=== PATIENT | male | born 1985 | race African-American/Black ===

== ENCOUNTER 2017-11-11 03:11 | Inpatient (IN) | payer MEDICAID ==
[~2017-11-11] VITALS: Ht 167.6 cm; Wt 56.2 kg
[2017-11-11] MEDS ORDERED: HALOPERIDOL 5 MG TABLET PO ONE (03:45)
[2017-11-11] MEDS ORDERED: LORazepam 2 MG TABLET PO ONE (03:45)
[2017-11-11 04:15] LABS: BASOPHILS % (AUTO) 0.6 % (0.0-2.0); EOSINOPHILS % (AUTO) 0.3 % (1.0-6.0); HEMATOCRIT 38.5 % (41-53); HEMOGLOBIN 13.3 g/dL (13.5-17.5); LYMPHOCYTES # (AUTO) 1.4 K/uL (1.0-4.8); LYMPHOCYTES % (AUTO) 21.9 % (22.0-44.0); MEAN CORPUSCULAR HGB CONC 34.5 G/dL (31.0-37.0); MEAN CORPUSCULAR VOLUME 90 fL (80-100); MONOCYTES # (AUTO) 0.5 K/uL (0.1-1.0); MONOCYTES % (AUTO) 7.6 % (2.0-9.0); NEUTROPHILS # (AUTO) 4.5 K/uL (1.8-7.7); NEUTROPHILS % (AUTO) 69.6 % (40.0-70.0); PLATELET COUNT (AUTO) 280 K/uL (150-450); RED BLOOD CELL COUNT(AUTO) 4.29 MIL/uL (4.50-5.90); RED CELL DISTRIBUTION WIDTH 15.2 % (11.5-14.5)
[2017-11-11 04:29] LABS: ANION GAP 9 mmol/L (8-16); CARBON DIOXIDE 28 mmol/L (22-29); CHLORIDE 101 mmol/L (98-107); CREATININE 0.92 mg/dL (0.60-1.30); GLOMERULAR FILTR. RATE CALC > 60 mL/min (>60); GLUCOSE,RANDOM 128 mg/dL (70-110); POTASSIUM 3.1 mmol/L (3.5-5.1); SODIUM SERUM 138 mmol/L (136-145); UREA NITROGEN, BLOOD 9 mg/dL (7-18)
[2017-11-11 04:35] LABS: ALANINE AMINOTRANSFERASE 34 U/L (12-78); ALBUMIN 3.8 g/dL (3.4-5.0); ALKALINE PHOSPHATASE 67 U/L (46-116); ASPARTATE AMINOTRANSFERASE 25 U/L (15-37); BILIRUBIN,TOTAL 0.3 mg/dL (0.1-1.0); TOTAL PROTEIN, SERUM 7.5 g/dL (6.4-8.2)
[2017-11-11 11:58] VITALS: BP 105/51
[2017-11-11] MEDS ORDERED: INFLUENZA VIRUS VACCINE QVS 2017-18 (3YR+)/PF 60 MCG/0.5 ML SYRINGE IM ONE (12:30)
[2017-11-11] MEDS ORDERED: PNEUMOCOCCAL VACCINE POLYVALENT 0.5 ML VIAL [PPSV23] IM ONE (12:30)
[2017-11-11] MEDS ORDERED: POTASSIUM CHLORIDE 20 MEQ ER TABLET PO ONE (15:15)
[2017-11-11 16:10] VITALS: BP 110/74
[2017-11-11] MEDS: LORazepam 2 MG TABLET PO PRN (17:06)
[2017-11-11] MEDS: HALOPERIDOL 5 MG TABLET PO PRN (19:28)
[2017-11-11] MEDS: OLANZapine 7.5 MG TABLET PO SCH (20:47)
[2017-11-11] MEDS: ZOLPIDEM TARTRATE 10 MG TABLET PO PRN (21:55)
[2017-11-12] MEDS ORDERED: ACETAMINOPHEN 325 MG TABLET PO PRN (07:00)
[2017-11-12] MEDS ORDERED: POTASSIUM CHLORIDE 20 MEQ ER TABLET PO ONE (07:00)
[2017-11-12] MEDS ORDERED: DOCUSATE SODIUM 100 MG CAPSULE PO PRN (07:00)
[2017-11-12] MEDS: FERROUS SULFATE 325 MG EC TABLET PO SCH ×3 (07:14→16:49)
[2017-11-12] MEDS: DIVALPROEX SODIUM 500 MG DR TABLET PO SCH ×2 (08:42→16:49)
[2017-11-12 10:18] VITALS: BP 117/70
[2017-11-12] MEDS ORDERED: ALBUTEROL SULFATE HFA 90 MCG/PUFF 8 GM INHALER IH PRN (14:30)
[2017-11-12 16:11] VITALS: BP 110/67
[2017-11-12] MEDS: IBUPROFEN 400 MG TABLET PO PRN (17:02)
[2017-11-12] MEDS: OLANZapine 7.5 MG TABLET PO SCH (20:23)
[2017-11-13 06:00] VITALS: BP 104/62
[2017-11-13] MEDS: FERROUS SULFATE 325 MG EC TABLET PO SCH ×3 (06:41→16:02)
[2017-11-13 09:06] VITALS: BP 103/57
[2017-11-13] MEDS: DIVALPROEX SODIUM 500 MG DR TABLET PO SCH ×2 (09:39→16:02)
[2017-11-13 16:00] VITALS: BP 108/68
[2017-11-13] MEDS: LORazepam 2 MG TABLET PO PRN (16:04)
[2017-11-13] MEDS: HALOPERIDOL 5 MG TABLET PO PRN (17:32)
[2017-11-13] MEDS: OLANZapine 7.5 MG TABLET PO SCH (21:12)
[2017-11-14 05:50] VITALS: BP 110/70
[2017-11-14] MEDS: FERROUS SULFATE 325 MG EC TABLET PO SCH ×3 (06:49→16:36)
[2017-11-14] MEDS: IBUPROFEN 400 MG TABLET PO PRN (06:53)
[2017-11-14] MEDS: DIVALPROEX SODIUM 500 MG DR TABLET PO SCH ×2 (08:37→16:36)
[2017-11-14 08:45] VITALS: BP 110/63
[2017-11-14 16:26] VITALS: BP 120/96
[2017-11-14] MEDS: HALOPERIDOL 5 MG TABLET PO PRN (16:36)
[2017-11-14] MEDS ORDERED: DIVA500T35 PO (17:31)
[2017-11-14] MEDS ORDERED: OLAN7.5T2 PO (17:31)
[2017-11-14] MEDS: LORazepam 2 MG TABLET PO PRN (17:41)
[2017-11-14] MEDS: OLANZapine 7.5 MG TABLET PO SCH (20:30)
[2017-11-14] MEDS: ZOLPIDEM TARTRATE 10 MG TABLET PO PRN (20:31)
[2017-11-15 05:56] VITALS: BP 100/61
[2017-11-15] MEDS: FERROUS SULFATE 325 MG EC TABLET PO SCH ×3 (07:23→16:55)
[2017-11-15 08:41] VITALS: BP 112/78
[2017-11-15] MEDS: DIVALPROEX SODIUM 500 MG DR TABLET PO SCH ×2 (08:45→16:55)
[2017-11-15 08:53] LABS: HEMOGLOBIN A1C 5.2 % (4.5-6.2)
[2017-11-15] MEDS: IBUPROFEN 400 MG TABLET PO PRN (09:00)
[2017-11-15] MEDS: LORazepam 2 MG TABLET PO PRN ×2 (09:00→16:55)
[2017-11-15] MEDS: HALOPERIDOL 5 MG TABLET PO PRN ×2 (09:00→16:55)
[2017-11-15 09:33] LABS: CHOL/HDL RATIO 3.4 (4.2-7.3); THYROID STIMULATING HORMONE 0.64 uIU/mL (0.36-3.74)
[2017-11-15] MEDS ORDERED: LORazepam 2 MG/ML VIAL ONE (09:49)
[2017-11-15] MEDS ORDERED: HALOPERIDOL LACTATE 5 MG/ML VIAL ONE (09:50)
[2017-11-15] MEDS ORDERED: DiphenhydrAMINE HCL 50 MG/ML VIAL ONE (09:50)
[2017-11-15] MEDS ORDERED: DiphenhydrAMINE HCL 50 MG/ML VIAL IM ONE (10:00)
[2017-11-15] MEDS ORDERED: LORazepam 2 MG/ML VIAL IM ONE (10:00)
[2017-11-15] MEDS ORDERED: HALOPERIDOL LACTATE 5 MG/ML VIAL IM ONE (10:00)
[2017-11-15 16:00] VITALS: BP 114/68
[2017-11-15] MEDS: OLANZapine 7.5 MG TABLET PO SCH (20:32)
[2017-11-16 04:03] VITALS: BP 123/69
[2017-11-16] MEDS: FERROUS SULFATE 325 MG EC TABLET PO SCH ×3 (06:15→16:25)
[2017-11-16 08:06] VITALS: BP 123/70
[2017-11-16] MEDS: DIVALPROEX SODIUM 500 MG DR TABLET PO SCH ×3 (08:16→16:25)
[2017-11-16 16:00] VITALS: BP 126/72
[2017-11-16] MEDS: LORazepam 2 MG TABLET PO PRN ×2 (16:25→20:40)
[2017-11-16] MEDS: HALOPERIDOL 5 MG TABLET PO PRN (16:25)
[2017-11-16] MEDS: ZOLPIDEM TARTRATE 10 MG TABLET PO PRN (20:40)
[2017-11-16] MEDS: OLANZapine 7.5 MG TABLET PO SCH (20:40)
[2017-11-17] MEDS: FERROUS SULFATE 325 MG EC TABLET PO SCH (06:23)
[2017-11-17] MEDS: DIVALPROEX SODIUM 500 MG DR TABLET PO SCH (08:26)
[2017-11-17] MEDS ORDERED: FERR325T22 PO (09:42)
== END 2017-11-17 12:42 | disposition home or self-care (01) | DRG 750 ==
LOC: EMS 03:13 → B2S 05:21 → EDBD 05:21 → B2S 11-14 16:26 → B3A 11-15 11:15
PROVIDERS: ADMIT Psychiatry & Neurology Psychiatry; ATTEND Psychiatry & Neurology Psychiatry
DX: F25.9 Schizoaffective disorder, unspecified (principal); F14.10 Cocaine abuse, uncomplicated; F41.9 Anxiety disorder, unspecified; E87.6 Hypokalemia; D64.9 Anemia, unspecified; G89.29 Other chronic pain; J45.909 Unspecified asthma, uncomplicated; Z91.013 Allergy to seafood
CPT/HCPCS: 83036; 84132; 84443; 99285; G0480; J1200; J1630; J2060